=== PATIENT | male | born 1965 | race Caucasian/White ===

== ENCOUNTER 2017-07-29 09:12 | Emergency (ER) | payer BC ==
--- NOTE | 2017-07-29 09:38 | Emergency Department Record ---
History of Present Illness - General Chief complaint: Fatigue and Weakness Stated complaint: TIRED AND NAUSEA Time Seen by Provider: 07/29/17 09:29 Source: Patient, Family Mode of Arrival: Ambulatory Limitations: No limitations - History of Present Illness Initial comments: 52 yo male presents with many concerns. He has not seen a doctor in nearly 20 years. For the last 2 months he has not felt well. He has been more anxious, fatigued, tired. He reports increased stress with deaths in the family and a son in custodial. No headaches or dizziness. No loss of vision or changes. No changes in speech. No neck pain. No cough, shortness or breath or chest pain. He has some appetite changes and occasional nausea. He has a feeling of hot flashes at times. No syncope. He has had hemorrhoids for nearly 10 years and has occasional bleeding. No edema. His left arm occasionally tingles on the underneath side. No weakness. He works long hours occasionally in the sun. No current medications. No PCP work up in the last 20 years. MD Complaint: Generalized weakness -: Unknown Severity: Mild Consistency: Intermittent Improves with: None Worsens with: None Context: Depression Associated Symptoms: Nausea/vomiting - Diamond Coma Scale Eye Response: (4) Open spontaneously Motor Response: (6) Obeys commands Verbal Response: (5) Oriented [place] Total: 15 - Related Data Home Medications Medication Instructions Recorded Confirmed Last Taken No Home Med [NO HOME MEDS] 07/29/17 07/29/17 Unknown Allergies Allergy/AdvReac Type Severity Reaction Status Date / Time No Known Drug Allergies Allergy Verified 07/29/17 09:26 Travel Screening - Travel/Exposure Within Last 30 Days Have you traveled within the last 30 days?: No Review of Systems Constitutional: Reports: Malaise, Weakness. Denies: Chills, Fever Eyes: Denies: Eye discharge, Eye pain, Photophobia, Vision change ENT: Denies: Congestion, Ear pain, Epistaxis, Throat pain Respiratory: Denies: Cough, Dyspnea, Hemoptysis, Stridor, Wheezes Cardiovascular: Denies: Chest pain, Dyspnea on exertion, Palpitations, Syncope Endocrine: Reports: As per HPI, Fatigue. Denies: Polydipsia, Polyuria Gastrointestinal: Reports: Hematochezia (hemorrhoid), Nausea. Denies: Abdominal pain, Constipation, Diarrhea, Hematemesis, Melena, Vomiting Genitourinary: Denies: Dysuria, Frequency, Hematuria, Incontinence, Urgency Musculoskeletal: Denies: Arthralgia, Back pain, Myalgia, Neck pain Skin: Denies: Bruising, Change in color, Rash Neurological: Reports: As per HPI, Numbness, Tingling (left arm occasionally on the underneath side). Denies: Confusion, Tremors, Vertigo, Weakness Psychiatric: Reports: As per HPI, Anxiety, Depression Hematological/Lymphatic: Denies: Blood Clots, Easy bleeding, Easy bruising, Swollen glands Past Medical History - SOCIAL HISTORY Smoking Status: Former smoker Alcohol Use: None Drug Use: Occasional Drug Use Detail:: Marijuana - RESPIRATORY Hx Respiratory Disorders: No - CARDIOVASCULAR Hx Cardio Disorders: No - NEURO Hx Neuro Disorders: No - GI Hx GI Disorders: No - Hx Genitourinary Disorders: No - ENDOCRINE Hx Endocrine Disorders: No - MUSCULOSKELETAL Hx Musculoskeletal Disorders: No - PSYCH Hx Psych Problems: No - HEMATOLOGY/ONCOLOGY Hx Hematology/Oncology Disorders: No Family Medical History Any Significant Family History?: Yes Hx Cancer: Father Hx Kidney Disease: Father Physical Exam - General General Appearance: Alert, Oriented x3, Cooperative, No acute distress Limitations: No limitations - Head Head exam: Atraumatic, Normocephalic, Normal inspection - Eye Eye exam: Normal appearance, PERRL. negative: Conjunctival injection, Periorbital swelling, Scleral icterus - ENT ENT exam: Normal exam, Mucous membranes moist, Normal orophraynx, TM's normal bilaterally Ear exam: Normal external inspection Nasal Exam: Normal inspection Mouth exam: Normal external inspection Teeth exam: Normal inspection Throat exam: Normal inspection. negative: Tonsillar erythema, Tonsillomegaly, R peritonsillar mass, L peritonsillar mass - Neck Neck exam: Normal inspection. negative: Lymphadenopathy, Meningismus, Tenderness, Thyromegaly - Respiratory Respiratory exam: Normal lung sounds bilaterally. negative: Respiratory distress, Rhonchi, Stridor, Wheezes - Cardiovascular Cardiovascular Exam: Regular rate, Normal rhythm, Normal heart sounds Peripheral Pulses: 2+: Radial (R), Radial (L) - GI/Abdominal GI/Abdominal exam: Soft. negative: Distended, Guarding, Tenderness - Rectal Rectal exam: Heme (-) stool, Hemorrhoids. negative: Black stool, Bloody stool, Decreased rectal tone, Fecal impaction, Heme (+) stool, Normal inspection ( redundant tissue possible small soft hemorrhoid at 6 o'clock.) - exam: Deferred - Extremities Extremities exam: Normal inspection, Full ROM, Normal capillary refill. negative: Pedal edema, Tenderness - Back Back exam: Reports: Full ROM. Denies: CVA tenderness (R), CVA tenderness (L) - Neurological Neurological exam: Alert, Normal gait, Oriented X3 - Psychiatric Psychiatric exam: Depressed - Skin Skin exam: Dry, Intact, Normal color, Warm Course Vital Signs 07/29/17 09:20 Temperature 97.9 F Pulse Rate 88 Respiratory 20 Rate Blood Pressure 142/87 Pulse Ox 99 - Reevaluation(s) Reevaluation #1: The labs were reviewed No acute changes The patient was referred to the GI for the blood in stools and PCP at [facility] 07/29/17 10:54 Reevaluation #2: EKG NSR rate 76, intervals normal, axis normal, ST normal. No acute changes 07/29/17 11:32 Medical Decision Making - Lab Data Result diagrams: 07/29/17 09:46 07/29/17 09:46 Disposition Disposition: Discharge Clinical Impression: Hemorrhoid Qualifiers: Hemorrhoid type: unspecified Qualified Code(s): K64.9 - Unspecified hemorrhoids Fatigue Qualifiers: Fatigue type: unspecified Qualified Code(s): R53.83 - Other fatigue Disposition: Home, Self-Care Condition: (1) Good Instructions: Hemorrhoids (ED), Fatigue (ED) Additional Instructions: Call for a new doctor appointment Referrals: CORRINE GUERRERO M.D. [MEDICAL DOCTOR] - HENRY FONG [DOCTOR OF OSTEOPATH] - [facility] Specialty [facility] [Provider Group] Forms: Patient Portal Access Time of Disposition: 10:55 Quality - Quality Measures Quality Measures: N/A - Blood Pressure Screening Does Patient Have Any of the Following: No Blood Pressure Classification: Pre-Hypertensive BP Reading Systolic Measurement: 142 Diastolic Measurement: 87 Screening for High Blood Pressure: < Pre-Hypertensive BP, F/U Documented > [ [id number]] Pre-Hypertensive Follow-up Interventions: Referral to alternative/primary care provider.
[2017-07-29 09:57] LABS: URINE APPEARANCE CLEAR; URINE BILIRUBIN NEGATIVE (NEGATIVE); URINE BLOOD SMALL (NEGATIVE); URINE COLOR YELLOW; URINE GLUCOSE (UA) NEGATIVE (NEGATIVE); URINE KETONE TRACE (NEGATIVE); URINE LEUKOCYTE ESTERASE NEGATIVE (NEGATIVE); URINE NITRITE NEGATIVE (NEGATIVE); URINE UROBILINOGEN 0.2 E.U./dL (0.20 - 1.00)
[2017-07-29 10:06] LABS: URINE BACTERIA FEW; URINE EPITHELIAL CELLS 0 - 2 (FEW); URINE MUCUS MODERATE; URINE RBC 0 - 2 (NONE SEEN); URINE WBC 0 - 2 (0-2/hpf)
[2017-07-29 10:14] LABS: ALB/GLOB RATIO 1.5 (1.1-1.8); ALBUMIN 4.7 gm/dL (3.5-5.0); ALKALINE PHOSPHATASE 101 U/L (38-126); ALT/SGPT 49 U/L (21-72); ANION GAP 12.3 (7-16); AST/SGOT 22 U/L (17-59); BILIRUBIN,TOTAL 1.02 mg/dL (0.2-1.3); BLOOD UREA NITROGEN 17 mg/dL (9-20); CARBON DIOXIDE 22.7 mmol/L (22-30); CREATININE 1.1 mg/dL (0.66-1.25); EST GLOMERULAR FILTRATION RATE > 60 ml/min; GLUCOSE,RANDOM 126 mg/dL (70-110); TOTAL PROTEIN 7.8 gm/dL (6.3-8.2)
[2017-07-29 10:34] LABS: BASO % 0.1 % (0-6); EOS % 0.5 % (0-6); GRAN % 72.7 % (47-80); HEMATOCRIT 46.6 % (42.0-52.0); HEMOGLOBIN 16.1 gm/dl (14.0-18.0); LYMPH % 19.2 % (16-45); MEAN CELL VOLUME 82.5 fl (81-97); MEAN CORPUSCULAR HEMOGLOBIN 28.5 pg (27-33); MEAN CORPUSCULAR HGB CONC 34.5 g/dl (32-36); MONO % 7.5 % (0-9); PLATELET COUNT 227 K/uL (130-400); RED BLOOD COUNT 5.65 M/uL (4.40-5.70); RED CELL DISTRIBUTION WIDTH 13.1 % (11.5-14.5); WHITE BLOOD COUNT W/O DIFF 8.4 K/uL (4.2-12.2)
[2017-07-29 10:45] LABS: THYROID STIMULATING HORMONE 2.58 uIU/ml (0.465-4.68)
== END 2017-07-29 11:41 | disposition home or self-care (01) ==
LOC: ER 09:12
DX: K64.9 Unspecified hemorrhoids (principal); R11.2 Nausea with vomiting, unspecified; R53.83 Other fatigue; R20.2 Paresthesia of skin
CPT/HCPCS: 80053; 81001; 83735; 84443; 85025; 93005; 93010; 99284

== ENCOUNTER 2017-08-07 09:04 | Day surgery (SDC) | payer BC ==
[2017-08-07] MEDS ORDERED: PROPOFOL 10 MG/ML VIAL IV ONE (16:11)
[2017-08-07] MEDS ORDERED: LIDOCAINE 2% MDV (20MG/ML) 20ML VIAL IV ONE (16:11)
[2017-08-07] MEDS ORDERED: MIDAZOLAM HCL 2MG/2ML VIAL IV ONE (16:11)
--- NOTE | 2017-08-13 09:50 | Operative Note ---
DATE OF SURGERY: 08/07/2017 OPERATION: COLONOSCOPY with cold forceps polypectomy. PREOPERATIVE DIAGNOSIS: Screening, average risk. POSTOPERATIVE DIAGNOSES: 1. Transverse colon polyp, status post cold forceps removal. 2. Sigmoid diverticulosis. PREPARATION QUALITY: Good to excellent. ESTIMATED BLOOD LOSS: Minimal. SPECIMENS: Transverse colon polyp. COMPLICATIONS: None apparent. PROCEDURE: After informed consent was obtained from the patient, he was placed in the left lateral decubitus position in the endoscopy suite, sedated and monitored by the department of anesthesia. Digital rectal examination was unremarkable. A well-lubricated [id number] colonoscope was inserted into the rectum and advanced to the cecum. Preparation quality was good to excellent. The cecum, ileocecal valve, appendiceal orifice, and, ascending colon were unremarkable. The transverse colon revealed a 4 mm polyp removed with a cold forceps. Minimal bleeding was noted. The remainder of the transverse colon and descending colon were unremarkable. The sigmoid colon demonstrated moderate diverticular changes. No polyps or inflammation was seen. The rectum was unremarkable in forward and in J-turn views. The endoscope was straightened, the rectal ampulla deflated, and the endoscope was removed. RECOMMENDATIONS: I would suggest the patient follow a high-fiber diet. He should avoid smoking. He will require repeat colonoscopy in 5 years for surveillance. As always, thank you for allowing me to participate in the healthcare of your patients. CC: Maria WATKINS
== END 2017-08-07 10:28 | disposition home or self-care (01) ==
LOC: HOP 09:04
PROVIDERS: ATTEND Internal Medicine Gastroenterology
DX: Z12.11 Encounter for screening for malignant neoplasm of colon (principal); D12.3 Benign neoplasm of transverse colon; K57.30 Diverticulosis of large intestine without perforation or abscess without bleeding